=== PATIENT | male | born 1995 | race Caucasian/White ===

== ENCOUNTER 2016-06-07 00:08 | Emergency (ER) | payer BC, OTHER ==
[~2016-06-07] VITALS: Ht 185.4 cm; Wt 71.9 kg
[2016-06-07 00:18] VITALS: TEMP 36.8; Ht 185.4 cm; Wt 71.9 kg
[2016-06-07] MEDS ORDERED: AMPH10TA2 PO (01:05)
--- NOTE | 2016-06-07 01:56 | EMERGENCY ROOM VISIT NOTE ---
History First contact with patient: 00:22 Chief Complaint: HEAD INJURY (MINOR) Stated Complaint: NAUSEA,HEADACHE,DIZZINESS History of Present Illness The patient is a 21 year old male who presents to the Emergency Room with complaints of head injury who slipped and fell outside on the ice. He had a side. Patient's been drinking alcohol and smoking marijuana tonight. She was a headache feeling lightheaded and nauseous. Patient denies neck pain, chest pain, distention, back pain, numbness, tingling, loss of consciousness. Review of Systems See HPI for pertinent positives & negatives. A total of 10 systems reviewed and were otherwise negative. Past Medical/Surgical History Asthma Social History Smoking Status: Current Some Day Smoker Alcohol Use: occasionally Drug Use: marijuana Marital Status: in relationship Occupation Status: [employer] student Current/Historical Medications Scheduled Amphetamine-Dextroamphetamine 10MG (Adderall 10MG), 10 MG PO DIRECTED Allergies Coded Allergies: No Known Allergies (Unverified , 06/07/16) Physical Exam Vital Signs Date Time Temp Pulse Resp B/P Pulse Ox O2 Delivery O2 Flow Rate FiO2 06/07/16 00:18 18 06/07/16 00:18 36.8 79 18 116/72 97 Room Air Physical Exam VITALS: Vitals are noted on the nurse's note and reviewed by myself. Vital signs stable. GENERAL: Pleasant male with EtOH odor, in no acute distress, nondiaphoretic, well-developed well-nourished. SKIN: The skin was without rashes, erythema, edema, or bruising. There is no tenting of the skin. Capillary reflex less than 2 seconds. HEAD: Normocephalic atraumatic. No facial bone tenderness EARS: External auditory canals clear, tympanic membranes pearly palm without erythema or effusion bilaterally. EYES: Pupils equal round and reactive to light and accommodation. Conjunctivae with injection, sclerae without icterus. Extraocular movements intact. NOSE: Patent, turbinates without inflammation or discharge. No sinus tenderness. MOUTH: Mucous membranes moist. . Pharynx without erythema or exudate. Uvula midline. Airway patent. Tongue does not deviate. NECK: Supple without nuchal rigidity. No lymphadenopathy. No thyromegaly. Cervical spine is nontender. No JVD. HEART: Regular rate and rhythm without murmurs gallops or rubs. LUNGS: Clear to auscultation bilaterally without wheezes, rales or rhonchi. No dullness to percussion. No retractions or accessory muscle use. ABDOMEN: Positive bowel sounds x 4. Normal tympanic percussion. Soft, nontender, without masses or organomegaly. Mejia sign negative. No guarding or rebound tenderness. MUSCULOSKELETAL: No muscle atrophy, erythema, or edema noted. NEURO: Patient was alert and oriented to person place and time. Normal sensation to light and sharp touch. No focal neurological deficits. Cranial nerves II-12 grossly intact. No pronator drift. Cerebellar exam intact Medical Decision & Procedures ED Course Prior records/ancillary studies reviewed. Triage Nursing notes reviewed. Additional history obtained from friend The patient's history was concerning for traumatic head injury Differential diagnosis: Etiologies such as concussion, contusion, fracture, subdural hematoma, epidural hematoma, intraparenchymal hemorrhage, as well as other traumatic pathologies were entertained. Physical examination findings: As above. ER treatment provided: By mouth fluids On reassessment the patient felt better. Diagnostics interpreted by me: Imaging studies: CAT scan was read by stat radiology negative for intracranial bleed It appears the patient has a head injury who is intoxicated so CT imaging was ordered. . I gave my usual and customary discussion regarding this issue. Patient was counseled on head injury signs and symptoms. He was encouraged no alcohol or strenuous activity for the week and do not resume his activities until symptom-free and cleared by health services. He was advised to return to the ER immediately for headache, fevers, confusion, lethargy, worsening signs or symptoms or as needed. Patient was neurologically and neurovascularly intact. He was well-appearing. By the evaluation outlined above emergent etiologies such as fracture, subdural hematoma, epidural hematoma, intraparenchymal hemorrhage, as well as others were deemed relatively unlikely. The pt informed about the findings as listed above. All questions were answered and pleased with the treatment. Return instructions were outlined and the patient was discharged in stable condition. Referral: The patient was referred back to their primary care physician for follow-up in 2 to 3 days for a recheck of the current condition. Medical Decision As above Impression Primary Impression: Closed head injury Departure Information Dispostion Home / Self-Care Condition GOOD Referrals No Doctor, Assigned (PCP) Forms HOME CARE DOCUMENTATION FORM, IMPORTANT VISIT INFORMATION Patient Instructions A Signature Page, [facility], ED Head Injury Closed Additional Instructions Read head injury handout and return for any symptoms. Tylenol 1000 mg as needed for pain (Maximum 3000 mg Tylenol in 24 hr period). Avoid alcohol and contact sports/activities for one week and follow up with family doctor prior to returning to these activities if still symptomatic. Ice and elevate head. Return to ER sooner for headache, confusion, vomiting, lethargy, worsening signs or symptoms or as needed. Problem Qualifiers Primary Impression: Closed head injury Encounter type: initial encounter Qualified Codes: S09.90XA - Unspecified injury of head, initial encounter
[2016-06-07 02:04] VITALS: BP 115/57; PULSE 59; O2SAT 96
--- NOTE | 2016-06-07 07:09 | DIAGNOSTIC IMAGING REPORT ---
CT SCAN OF THE BRAIN WITHOUT IV CONTRAST CLINICAL HISTORY: Head injury. Intoxication. COMPARISON STUDY: No priors. TECHNIQUE: Unenhanced axial CT scan of the brain is performed from the vertex to the skull base. Automated dose control exposure was utilized. The skull base was scanned twice due to motion artifact. FINDINGS: Brain parenchyma: The brain parenchyma is normal in appearance. There is no hemorrhage, mass effect, or evidence of acute territorial ischemia by CT criteria. Lunsford-white matter is preserved. No extra-axial fluid collection is seen. Ventricles, sulci, cisterns: Normal in configuration. Intracranial vasculature: The visualized intracranial vasculature at the skull base is normal in appearance. Calvarium: There is no depressed calvarial fracture. Sinuses and mastoids: The visualized paranasal sinuses are clear. The mastoid air cells are well pneumatized. Orbits: The bony orbits are grossly intact. IMPRESSION: No acute intracranial abnormality. Electronically signed by: Joseph Mcdonough M.D. 06/07/2016 7:07 AM Dictated Date/Time: 06/07/2016 7:06 AM
== END 2016-06-07 02:05 | disposition home or self-care (01) ==
LOC: C.EDB 00:09 → C.EDC 02:05
DX: S09.90XA Unspecified injury of head, initial encounter (principal); W00.0XXA Fall on same level due to ice and snow, initial encounter; F12.10 Cannabis abuse, uncomplicated; F17.210 Nicotine dependence, cigarettes, uncomplicated; Z79.899 Other long term (current) drug therapy; F10.129 Alcohol abuse with intoxication, unspecified; J45.909 Unspecified asthma, uncomplicated

== ENCOUNTER 2017-06-21 02:45 | Emergency (ER) | payer BC ==
[~2017-06-21] VITALS: Ht 185.4 cm; Wt 71.5 kg
[2017-06-21 02:45] VITALS: BP 136/80; PULSE 107; TEMP 36.8; O2SAT 98; Ht 185.4 cm; Wt 71.5 kg
[~2017-06-21 02:45] MED LIST: AMPH10TA2 PO
--- NOTE | 2017-06-21 03:04 | EMERGENCY ROOM VISIT NOTE ---
History Report prepared by Belen: Prema Hughes Under the Supervision of: Dr. Cruz Campbell M.D. First contact with patient: 02:49 Chief Complaint: ABDOMINAL PAIN Stated Complaint: PAIN IN STOMACH,LOSS OF FEELING IN RT SIDE,HOT FLA Nursing Triage Summary: 0215am while watching a movie pt had sudden onset of severe abd pain lasting 20 mins and then improving denies n/v/d pt reports felt lightheaded during episode History of Present Illness The patient is a 22 year old male who presents to the Emergency Room with complaints of persistent abdominal pain that started less than an hour ago. The patient rates his pain a 5/10 in severity. He notes the episode lasted about 20 minutes. The patient states he was laying down watching a movie and when he stood up to get water, he felt like he had a bad stomach ache. He notes the pain traveled to the right side of his chest. He states his right arm started to feel numb and he felt like he was going to pass out. The patient reports his legs felt "shaky" and he was experiencing hot flashes. He notes he smoked marijuana tonight. The patient states he has a history of anxiety. The patient denies any nausea, vomiting, diarrhea, fever, or back pain. He notes his little brother had 5 kidney stones. Source of History: patient Onset: less than an hour ago Position: abdomen Symptom Intensity: 5/10 Timing: other (persistent) Associated Symptoms: + chest pain, No fevers, No nausea, No vomiting, No back pain, No diarrhea Review of Systems See HPI for pertinent positives & negatives. A total of 10 systems reviewed and were otherwise negative. Past Medical & Surgical Anxiety. Family History Brother has a history of kidney stones. Social History Smoking Status: Current Some Day Smoker Alcohol Use: occasionally Drug Use: marijuana Marital Status: in relationship Occupation Status: [employer] student Current/Historical Medications Scheduled Amphetamine-Dextroamphetamine 10MG (Adderall 10MG), 10 MG PO DIRECTED Allergies Coded Allergies: No Known Allergies (Unverified , 06/21/17) Physical Exam Vital Signs Date Time Temp Pulse Resp B/P (MAP) Pulse Ox O2 Delivery O2 Flow Rate FiO2 06/21/17 02:45 36.8 107 20 136/80 98 Room Air Physical Exam GENERAL: Patient is stoned appearing and in no acute distress. HEENT: No acute trauma, normocephalic atraumatic, mucous membranes moist, no nasal congestion, no scleral icterus. Injected conjunctiva. NECK: No stridor, no adenopathy, no meningismus, trachea is midline. LUNGS: No dyspnea. Clear to auscultation and equal bilaterally. No wheeze, no rhonchi. HEART: Regular rate and rhythm. No murmurs, rubs, gallops appreciated. ABDOMEN: Soft, nontender, bowel sounds positive, no masses appreciated, no peritonitis. BACK: No midline tenderness, no CVA tenderness EXTREMITIES: Normal motion all extremities, no cyanosis, no edema. NEUROLOGIC: Alert and oriented, no acute motor or sensory deficits, no focal weakness, cranial nerves grossly intact. SKIN: No rash, no jaundice, no diaphoresis. Medical Decision & Procedures Laboratory Results Test 06/21/17 03:00 Urine Color YELLOW Urine Appearance CLEAR (CLEAR) Urine pH 6.5 (4.5-7.5) Urine Specific Eagle 1.018 (1.000-1.030) Urine Protein NEG (NEG) Urine Glucose (UA) NEG (NEG) Urine Ketones NEG (NEG) Urine Occult Blood NEG (NEG) Urine Nitrite NEG (NEG) Urine Bilirubin NEG (NEG) Urine Urobilinogen NEG (NEG) Urine Leukocyte Esterase NEG (NEG) Urine WBC (Auto) 1-5 /hpf (0-5) Urine RBC (Auto) 0-4 /hpf (0-4) Urine Hyaline Casts (Auto) 1-5 /lpf (0-5) Urine Epithelial Cells (Auto) 0-5 /lpf (0-5) Urine Bacteria (Auto) NEG (NEG) Laboratory results as reviewed by me. ED Course 0249: The patient was evaluated in room A4. A complete history and physical exam was performed. 0345: I reassessed the patient and he feels fine. He has not had any pain. He is ready to go home. Medical Decision Differential: Renal Colic, Pyelonephritis, Hydronephrosis, Appendicitis, Diverticulitis, Retroperitoneal Bleed/Infection, Aortic Pathology, MSK, Neurologic Pathology, amongst other pathologies entertained. 22 yr old male arrives following episode right flank pain after smoking marijuana which is completely resolved after getting here. Notes he had lightheadedness and extremity tingling shortly there-after which sounds very much anxiety related to marijuana use and brief episode of pain. Exam here is benign other than he is high. With family history of stones UA done revealing no blood. Given no further symptoms, benign exam and serial abdo exams negative I do not feel that labs, imaging necessary currently. He has completely normal neuro exam other than being high and I do not feel that neuro imaging necessary given his vague symptoms. Medication Reconcilliation Current Medication List: was personally reviewed by me Blood Pressure Screening Patient's blood pressure: Elevated blood pressure Blood pressure disposition: Elevated BP felt to be situational Impression Primary Impression: Abdominal discomfort in right flank Scribe Attestation The scribe's documentation has been prepared under my direction and personally reviewed by me in its entirety. I confirm that the note above accurately reflects all work, treatment, procedures, and medical decision making performed by me. Departure Information Dispostion Home / Self-Care Referrals No Doctor, Assigned (PCP) Patient Instructions ED Flank Pain Uncertain Cause, [facility] Additional Instructions We are always here to help. If you have worsening pain, fevers, vomiting, lightheadedness or other concerns , return immediately for further evaluation or see Primary Provider.
== END 2017-06-21 03:53 | disposition home or self-care (01) ==
LOC: C.EDB 02:46 → C.EDA 03:53
DX: R10.31 Right lower quadrant pain (principal); R10.11 Right upper quadrant pain; F12.10 Cannabis abuse, uncomplicated; F41.9 Anxiety disorder, unspecified; F17.200 Nicotine dependence, unspecified, uncomplicated; Z84.1 Family history of disorders of kidney and ureter